=== PATIENT | male | born 1995 | race Two or more races ===

== ENCOUNTER 2024-05-02 23:40 | Emergency (ER) | payer OTHER ==
[~2024-05-02] VITALS: Ht 180.3 cm; Wt 83.9 kg
[2024-05-03] MEDS ORDERED: BARIUM SULFATE 450 ML ORAL.SUSP PO ONE (01:52)
[2024-05-03] MEDS ORDERED: 0.9 % SODIUM CHLORIDE 1,000 ML IV ONE (02:00)
[2024-05-03 02:18] LABS: HEMATOCRIT 46.9 % (39.0-48.0); HEMOGLOBIN 15.6 g/dL (13-16.00); MEAN CELL VOLUME 90.7 fL (80.0-100.00); MEAN CORPUSCULAR HEMOGLOBIN 30.1 pg (27.00-32.0); MEAN CORPUSCULAR HGB CONC 33.2 g/dl (32.0-36.0); PLATELET COUNT 173 K/uL (150-450); RED BLOOD COUNT 5.17 M/uL (4.00-6.00); RED CELL DISTRIBUTION WIDTH 13.5 % (11.5-14.5)
[2024-05-03 02:31] LABS: INR 1.15; PARTIAL THROMBOPLASTIN TIME 27.5 SECONDS (22.0-34.0); PROTHROMBIN TIME 12.4 SECONDS (9.0-11.5)
[2024-05-03 02:35] LABS: ALBUMIN 3.4 gm/dL (3.4-5.0); BILIRUBIN TOTAL 1.2 mg/dL (0.3-1.2); CALCIUM 8.7 mg/dL (8.5-10.1); CREATININE SERUM 1.06 mg/dL (0.70-1.30); GFR 83.19; GLOBULINA 3.7 G/DL (2.4-3.5); POTASSIUM 3.73 mEq/L (3.5-5.1); TOTAL PROTEIN 7.1 gm/dL (6.4-8.2)
[2024-05-03 03:14] LABS: PH,URINE 6.5 (5.0-8.0); URINE APPEARANCE Clear; URINE BILIRRUBIN Negative (NEGATIVE); URINE BLOOD Negative; URINE COLOR Yellow; URINE GLUCOSE Negative (NEGATIVE); URINE KETONE Trace (NEGATIVE); URINE LEUKOCYTE Negative; URINE NITRATE Negative; URINE PROTEIN Negative (NEGATIVE)
[2024-05-03 03:59] LABS: URINE BACTERIA 2.4 uL (0.0-1933); URINE RBC 1.1 uL (0.0-20.8); URINE WBC 1.5 uL (0.0-23.2)
[2024-05-03] MEDS ORDERED: INTESTINEX680 M2 PO (06:20)
[2024-05-03] MEDS ORDERED: ZOFRAN8 MG PO (06:20)
== END 2024-05-03 06:54 ==
LOC: ER 23:43
PROVIDERS: General Practice
DX: R10.9 Unspecified abdominal pain (principal); Z87.898 Personal history of other specified conditions
CPT/HCPCS: 36415; 74177; Q9965